=== PATIENT | male | born 1955 | race Caucasian/White ===

== ENCOUNTER 2019-10-16 13:49 | Emergency (ER) | payer OTHER ==
[2019-10-16 14:20] VITALS: BMI 29.0
[2019-10-16] MEDS ORDERED: DIPHTH,PERTUSS(ACELL),TET 0.5 ML DISP.SYRIN IM ONE ×2 (14:20→15:52)
--- NOTE | 2019-10-16 14:21 | PDOC ---
Rapid Medical Evaluation Time Seen by Provider: 10/16/19 14:19 Medical Evaluation: Allergies Allergy/AdvReac Type Severity Reaction Status Date / Time No Known Allergies Allergy Verified 09/28/13 09:58 10/16/19 14:19 Pt is a 64 y/o M with no PMH who presents to the ER after getting a piece of metal in his eye just prior to arrival at work. He states he cannot see out of the L eye. Exam: Blood clot present over the L eye. Obvious eye lid lac to the upper lid Orders: Defer to provider Pt to proceed to the ER for further evaluation Discharge Disposition - Diagnosis Eye pain - Referrals - Patient Instructions - Post Discharge Activity
--- NOTE | 2019-10-16 15:03 | PDOC ---
History of Present Illness - General Stated Complaint: LFT EYE INJURY ([employer]) Time Seen by Provider: 10/16/19 14:19 - History of Present Illness Initial Comments: 10/16/19 14:58 64yo M with no significant PMH who presents to the ER after getting a piece of metal in his eye while doing metalwork. He states he cannot see out of the L eye or open it. Denies headstrike or fall. Complains of mild frontal headache. ROS negative. PMH/PSH: unspecified liver disease Meds: none Allergies Allergy/AdvReac Type Severity Reaction Status Date / Time No Known Allergies Allergy Verified 09/28/13 09:58 ROS GENERAL/CONSTITUTIONAL: No fever or chills. No weakness. HEAD, EYES, EARS, NOSE AND THROAT: +headache, L eye pain CARDIOVASCULAR: No chest pain or shortness of breath RESPIRATORY: No cough, wheezing, or hemoptysis. GASTROINTESTINAL: No nausea, vomiting, diarrhea or constipation. GENITOURINARY: No dysuria, frequency, or change in urination. MUSCULOSKELETAL: No joint or muscle swelling or pain. No neck or back pain. SKIN: No rash NEUROLOGIC: no vertigo, loss of consciousness, or change in strength/sensation. ENDOCRINE: No increased thirst. No abnormal weight change HEMATOLOGIC/LYMPHATIC: No anemia, easy bleeding, or history of blood clots. ALLERGIC/IMMUNOLOGIC: No hives or skin allergy. PE GENERAL: Awake, alert, and fully oriented, in no acute distress HEAD: No signs of trauma, normocephalic, atraumatic EYES: Blood clot present over the L eye. Eye lid lac to the upper lid. Not able to examine eye. ENT: Auricles normal inspection, hearing grossly normal, nares patent, oropharynx clear without exudates. Moist mucosa NECK: Normal ROM, supple, no lymphadenopathy, JVD, or masses LUNGS: No distress, speaks full sentences, clear to auscultation bilaterally HEART: Regular rate and rhythm, normal S1 and S2, no murmurs, rubs or gallops, peripheral pulses normal and equal bilaterally. ABDOMEN: Soft, nontender, normoactive bowel sounds. No guarding, no rebound. No masses EXTREMITIES : Normal inspection, Normal range of motion, no edema. No clubbing or cyanosis. NEUROLOGICAL: Cranial nerves II through XII grossly intact. Normal speech, normal gait, no focal sensorimotor deficits SKIN: Warm, Dry, normal turgor, no rashes or lesions noted Vital Signs Temp Pulse Resp BP Pulse Ox 102 H 151/78 96 10/16/19 14:17 10/16/19 14:17 10/16/19 14:17 MDM 64yo M with no PMH who presents to the ER after getting a piece of metal in his eye while doing metalwork. He states he cannot see out of the L eye or open it. Concern for globe rupture. Will obtain ocular CT to assess for globe rupture and other trauma. CT: air suggestive of L globe rupture, and foreign body in L eye. No acute fracture Unasyn, tetanus, fluids, IV tylenol Transfer to [facility] 10/16/19 17:11 Spoke with [facility] and ED who accepted the patient for transfer. Past History - Medical History Allergies/Adverse Reactions: Allergies Allergy/AdvReac Type Severity Reaction Status Date / Time No Known Allergies Allergy Verified 09/28/13 09:58 Home Medications: Ambulatory Orders Acetaminophen W/ Codeine #3 [Tylenol # 3 -] 1 tab PO Q6H #20 tablet 09/20/13 Amox-Tr/K Cl [Augmentin 875-125mg Tablet -] 1 tab PO BID #14 tablet 09/20/13 - Psycho-Social/Smoking History Smoking History: Never smoked - Substance Abuse Hx (Audit-C & DAST Scrn) How often the patient has a drink containing alcohol: Monthly or less Score: In Men: 4 or > Positive; In Women: 3 or > Positive: 1 Screen Result (Pos requires Nsg. Audit-10AR): Negative In the last yr the pt used illegal drug/Rx for NonMed reason: No Score: Yes response is considered Positive: 0 Screen Result (Positive result requires Nsg. DAST-10): Negative *Physical Exam - Vital Signs Last Vital Signs Temp Pulse Resp BP Pulse Ox 102 H 151/78 96 10/16/19 14:17 10/16/19 14:17 10/16/19 14:17 Discharge - Discharge Information Problems reviewed: Yes Clinical Impression/Diagnosis: Eye pain Qualifiers: Laterality: left Qualified Code(s): H57.12 - Ocular pain, left eye Ruptured globe of left eye Qualifiers: Encounter type: initial encounter Qualified Code(s): S05.32XA - Ocular laceration without prolapse or loss of intraocular tissue, left eye, initial encounter Condition: Fair - Follow up/Referral - Patient Discharge Instructions - Post Discharge Activity - Transfer to Acute Care Facility Receiving Facility Name: [facility]
[2019-10-16] MEDS ORDERED: AMPICILLIN NA/SULBACTAM NA 3 GM in SODIUM CHLORIDE 100 ML IVPB ONE (15:33)
--- NOTE | 2019-10-16 16:00 | PDOC ---
Attending Attestation - Resident Resident Name: Byrce Lara - ED Attending Attestation I have performed the following: I have examined & evaluated the patient, The case was reviewed & discussed with the resident, I agree w/resident's findings & plan - HPI HPI: 10/16/19 15:56 64-year-old male with history of "liver disease" off medications presents with left eye injury. Patient was working with steel, a small projectile piece struck his left eye. He felt fluid, lost vision in the eye, presents for evaluation. No other injuries. Complaining only of discomfort around his left eye. - Physicial Exam PE: 10/16/19 15:58 Vital signs as noted Patient is alert and communicative, mild distress No obvious facial trauma, however there is gross blood emanating from left eye - Critical Care Time Total Critical Care Time: 30 Critical Care Statement: The care of this patient involved high complexity decision making to prevent further life threatening deterioration of the patient's condition and/or to evaluate & treat vital organ system(s) failure or risk of failure. - Medical Decision Making 10/16/19 15:59 64-year-old male with projectile injury to left eye, positive loss of vision. No other injuries. Stat CT shows ruptured globe with metallic foreign body in left eye Tetanus, IV antibiotics Antiemetics, pain control Ophthalmology transfer 10/16/19 16:20 accepted for transfer to [facility] ED by ophthortega Mora Discharge - Discharge Information Problems reviewed: Yes Clinical Impression/Diagnosis: Eye pain Qualifiers: Laterality: left Qualified Code(s): H57.12 - Ocular pain, left eye Ruptured globe of left eye Qualifiers: Encounter type: initial encounter Qualified Code(s): S05.32XA - Ocular laceration without prolapse or loss of intraocular tissue, left eye, initial encounter Condition: Fair - Follow up/Referral - Patient Discharge Instructions - Post Discharge Activity - Transfer to Acute Care Facility Receiving Facility Name: [facility] Accepting Physician:: Abby
[2019-10-16] MEDS ORDERED: SODIUM CHLORIDE 1,000 ML IV STA (16:27)
[2019-10-16 17:05] VITALS: BP 152/75; PULSE 88; TEMP 97.2
[2019-10-16] MEDS ORDERED: ACETAMINOPHEN 1000 MG/100 ML VIAL (NON FORMULARY) IVPB ONE (17:09)
[2019-10-16] MEDS ORDERED: ONDANSETRON 4 MG/2 ML VIAL IVPUSH ONE (17:34)
== END 2019-10-16 18:00 | disposition short-term general hospital (02) ==
LOC: JER 13:49
PROC: 3E03329 Introduction of Other Anti-infective into Peripheral Vein, Percutaneous Approach (ICD-10-PCS; principal; 2019-10-16)
PROC: 3E033GC Introduction of Other Therapeutic Substance into Peripheral Vein, Percutaneous Approach (ICD-10-PCS; 2019-10-16)
PROC: 3E0337Z Introduction of Electrolytic and Water Balance Substance into Peripheral Vein, Percutaneous Approach (ICD-10-PCS; 2019-10-16)
PROC: 3E0234Z Introduction of Serum, Toxoid and Vaccine into Muscle, Percutaneous Approach (ICD-10-PCS; 2019-10-16)
DX: S05.32XA Ocular laceration without prolapse or loss of intraocular tissue, left eye, initial encounter (principal); H57.12 Ocular pain, left eye
CPT/HCPCS: 70480-TC; 90715; 99284-25; J0131